=== PATIENT | male | born 1975 | race Caucasian/White ===

== ENCOUNTER 2020-10-20 20:50 | Emergency (ER) | payer MEDICAID ==
[~2020-10-20] VITALS: Ht 188 cm; Wt 99.8 kg
[~2020-10-20 20:50] MED LIST: ABILIFY10 MG PO; LUNESTA1 MG PO; LUNESTA3 MG PO; LYRICA 75 MG CA75 MG PO; NEURONTIN250 MG/5 M PO; OTEZLA30 MG PO; PRILOSEC OTC20 MG PO; SEROQUEL XR400 MG PO; WELLBUTRIN XL300 MG PO
[2020-10-21 03:46] VITALS: BP 98/58
== END 2020-10-21 03:47 | disposition home or self-care (01) ==
LOC: M.ERS 20:50
DX: F10.129 Alcohol abuse with intoxication, unspecified (principal); Y90.9 Presence of alcohol in blood, level not specified; Z88.5 Allergy status to narcotic agent; Z88.0 Allergy status to penicillin